=== PATIENT | female | born 1955 | race Caucasian/White ===

== ENCOUNTER → 2018-06-22 | Outpatient (CLI) | payer MEDICARE, OTHER ==
--- NOTE | 2018-06-22 13:11 | KCIC ---
EXAM: 3 views of the thoracic spine DATE: 06/22/2018 12:00 AM INDICATION: Persistent back pain COMPARISON: CT chest, 05/30/2005 FINDINGS: Vertebral body heights are preserved. No significant spondylolisthesis. Small anterior endplate osteophytes are seen at multiple levels most prominent at the lower thoracic spine. Ossification adjacent to the posterior spinous process of likely T8 and T7, likely heterotopic ossification. No evidence of acute fracture or dislocation. IMPRESSION: 1. Negative acute fracture or subluxation. 2. Degenerative changes of the lower thoracic spine. 3. Mild anatomic calcification adjacent to the posterior spinous process of likely T8 and T7. Electronically signed by: Champ Magdaleno MD (06/22/2018 1:07 PM) [facility]
== END | disposition home or self-care (01) ==
LOC: KCIC 11:33
PROVIDERS: ATTEND Family Medicine
DX: M47.894 Other spondylosis, thoracic region (principal); M25.78 Osteophyte, vertebrae
CPT/HCPCS: 72072

== ENCOUNTER → 2018-07-03 | Outpatient (CLI) | payer MEDICARE, OTHER ==
--- NOTE | 2018-07-03 14:50 | KCIC ---
EXAM: Abdomen sonogram. HISTORY: Abnormal liver function laboratory values. TECHNIQUE: Sonographic imaging of the abdomen was performed. COMPARISON: None. FINDINGS: The liver is enlarged. There is hepatic steatosis. No focal hepatic lesion is seen. The common bile duct is normal in caliber. The gallbladder is unremarkable. The pancreas is partially obscured due to bowel gas and body habitus. The right kidney is normal in size. There is no hydronephrosis. There is a 2.2 cm cyst within the lower pole the right kidney. The aorta is normal in caliber. The inferior vena cava is patent. IMPRESSION: 1. Hepatomegaly and hepatic steatosis. 2. 2.2 cm simple appearing right renal cyst. Electronically signed by: Linda Castillo MD (07/03/2018 2:47 PM) [facility] [place]
--- NOTE | 2018-07-04 07:41 | KCIC ---
EXAM: Dual energy x-ray absorptiometry (DEXA). HISTORY: Postmenopausal female presents for osteoporosis screening. COMPARISON: None. TECHNIQUE: Dual energy x-ray absorptiometry of the lumbar spine and left hip was performed. Calculation of bone mineral density based on standard deviations above or below the expected young adult normal value (T-score) was completed. FINDINGS: The average bone mineral density in the 1st through 4th lumbar vertebrae is 0.984 g/cmxcm, corresponding with a T-score of -0.6. The average total bone mineral density in the left hip is 0.802 g/cmxcm, corresponding with a T-score of -1.1. IMPRESSION: 1. Osteopenia measured at the left hip. 2. Normal bone mineral density measured at the lumbar spine. Note: Definitions established by the World Health Organization: 1. Normal: T-score is -1.0 or above. 2. Osteopenia: T-score is between -1.0 and -2.5 . 3. Osteoporosis: T-score is -2.5 or below. Electronically signed by: Linda Castillo MD (07/04/2018 7:38 AM) [facility]
== END | disposition home or self-care (01) ==
LOC: KCIC US 09:36
PROVIDERS: ATTEND Family Medicine
DX: M85.88 Other specified disorders of bone density and structure, other site (principal); K76.0 Fatty (change of) liver, not elsewhere classified; R16.0 Hepatomegaly, not elsewhere classified
CPT/HCPCS: 76705; 77080

== ENCOUNTER → 2021-04-30 | Outpatient (CLI) | payer MEDICARE, OTHER ==
[~2021-04-30] MED LIST: ASPI-630 PO; ESOM20CA PO; HYDR12.575 PO; IOHEXOL 240 MG/ML 50ML VIAL. PO ONE; IOHEXOL 300 MG/ML 100ML VIAL. IV ONE; LEVO25TA4 PO
--- NOTE | 2021-04-30 11:02 | KCIC ---
EXAMINATION: CT abdomen and pelvis with IV contrast. INDICATION:66 years, Female, abnormal lymph nodes seen on prior CT exam. Follow-up examination. TECHNIQUE: Axial CT images of the abdomen and pelvis were obtained. Coronal and sagittal reformatted performed. COMPARISON: 03/16/2020. Exposure: One or more of the following individualized dose reduction techniques were utilized for thi s examination: 1. Automated exposure control 2. Adjustment of the mA and/or kV according to patient size 3. Use of iterative reconstruction technique. FINDINGS: LOWER CHEST: Unremarkable ABDOMEN/PELVIS: Diffuse hepatic steatosis. Otherwise, normal morphology and size of the liver with homogeneous enhanc ement. No suspicious focal hepatic lesion. Mild splenomegaly measures up to 15 cm in length, unchange d since prior exam. No splenic lesion. Mildly atrophic pancreas with fat infiltration. Phrygian cup. Otherwise, unremarkable gallbladder. No biliary ductal dilation. Nodular thickening of the left adren al gland without discrete nodule. Right adrenal gland is normal. Unchanged simple appearing 2.[address] in the lower pole right kidney. No hydronephrosis in either kidney. No nephrolithiasis. No bowel obstruction or wall thickening. Normal appendix. Normal caliber abdominal aorta. It demonstr ates mild atherosclerotic calcifications without significant narrowing. Patent mesenteric arteries an d portal vein. No pneumoperitoneum or ascites. Redemonstrated prominent to mildly enlarged upper abdominal lymph nodes, unchanged in size and number since prior exam. For example, peripancreatic lymph node measures 1.8 cm in short axis. Gastrohepati c lymph node measures 1.0 cm in short axis. No retroperitoneal or pelvic lymphadenopathy by size crit eria. Similar gopal fat in the central small bowel mesentery with prominent mesenteric lymph nodes, n onspecific findings and can be seen in mesenteric panniculitis. Unremarkable urinary. Hysterectomy ch anges. MUSCULOSKELETAL: Small fat-containing umbilical hernia. Bilateral L5 pars defect. Multilevel degenerative changes in t he spine. IMPRESSION: 1. Similar size and number of multiple prominent to mildly enlarged upper abdominal lymph nodes, nons pecific. 2. Unchanged mild splenomegaly. 3. Similar gopal fat in the central small bowel mesentery with prominent mesenteric lymph nodes, nons pecific findings and can be seen in mesenteric panniculitis. 4. Other chronic/incidental findings, as described above. Electronically signed by: Jennifer Medina MD (04/30/2021 11:00 AM) [facility]
== END ==
LOC: KCIC CT 08:41
PROVIDERS: ATTEND Family Medicine
DX: K76.0 Fatty (change of) liver, not elsewhere classified (principal); K42.9 Umbilical hernia without obstruction or gangrene; N28.1 Cyst of kidney, acquired; R59.0 Localized enlarged lymph nodes; R16.1 Splenomegaly, not elsewhere classified; M79.3 Panniculitis, unspecified; K86.89 Other specified diseases of pancreas; I70.0 Atherosclerosis of aorta
CPT/HCPCS: 74177; Q9966; Q9967

== ENCOUNTER → 2021-05-01 | Outpatient (CLI) | payer MEDICARE, OTHER ==
[~2021-05-01] MED LIST changes: -IOHEXOL 240 MG/ML 50ML VIAL. PO ONE; -IOHEXOL 300 MG/ML 100ML VIAL. IV ONE
--- NOTE | 2021-05-01 16:48 | RAD ---
EXAM: BILATERAL DIGITAL 3D SCREENING MAMMOGRAPHY. HISTORY: Routine mammographic screening. TECHNIQUE: Bilateral digital 3D and tomographic images were obtained in CC and MLO projections. Compu ter-aided detection was applied. COMPARISON: None available. This is interpreted as a baseline study. COMPOSITION: C. The breasts are heterogeneously dense, which may obscure small masses. FINDINGS: There are multiple obscured or circumscribed masses bilaterally, likely reflecting lymph no jesus and cysts. These are seen at the left 9:00 position, and scattered throughout the right parenchym a. See annotations. There are indeterminate calcifications superiorly and medially on the right. See annotations. There is a small cluster of calcifications superolaterally on the left. See annotations. BI-RADS CATEGORY 0: Incomplete--Needs Additional Imaging Evaluation. RECOMMENDATION: 1. Sonography of the right breast to assess multiple obscured nodules at baseline. 2. Sonography of the left 9:00 position to assess likely benign nodules at baseline. 3. Magnification of indeterminate calcifications inferomedially on the right and superolaterally on t he left. Electronically signed by: Jose Ruiz MD (05/01/2021 4:46 PM) [email or web address]
== END ==
LOC: MAMMO 10:29
PROVIDERS: ATTEND Family Medicine
DX: Z12.31 Encounter for screening mammogram for malignant neoplasm of breast (principal)
CPT/HCPCS: 77063; 77067

== ENCOUNTER → 2021-05-17 | Outpatient (CLI) | payer MEDICARE, OTHER ==
--- NOTE | 2021-05-17 15:27 | RAD ---
US BREAST BILAT, MG DIAGNOSTIC BILAT 05/17/2021 2:20 PM INDICATION: Bilateral microcalcifications and masses. COMPARISON: 05/01/2021 TECHNIQUE: Spot magnification CC and ML/MLO views of the breasts were performed. Targeted sonographic evaluation of each breast was performed. FINDINGS: Right: In the medial posterior right breast, there is a 5 mm group of calcifications with heterogeneous calc ifications. Findings are probably benign and 3 month follow-up right mammogram is recommended. At the 2:00 position, 10 cm from the nipple there is a circumscribed hypoechoic mass with microcalcif ications and no definite posterior acoustic enhancement. Findings are suspicious and warrant ultrasou nd-guided core needle biopsy. Mass measures approximately 7 x 7 x 5 mm. electroencephalogram technologist will notify the ordering clinician and in order bulbi provided to the patient for the procedure. At the 9:00 position, 3 cm from the nipple there is a circumscribed hypoechoic mass with through fernandez smission suggestive of a cyst with minimal debris. Findings are benign. No suspicious axillary lymph node. There is a 7 mm intramammary lymph node at the 4:00 position, 4 cm from the nipple. Left: In the upper outer left breast there is a 4 mm group of microcalcifications.. Heterogeneous and are p robably benign. 3 month follow-up left mammogram is recommended. In the left breast at 3:00 position, 5 cm from nipple there is a lobulated hypoechoic mass with throu gh transmission suggestive of a cyst or cluster of cysts which may have internal debris. Findings fav or a complicated cyst . Complex cyst remains a differential consideration. Findings are probably timoteo gn. Three-month follow-up left breast ultrasound is recommended. IMPRESSION: 1. Suspicious mass in the right breast at the 10:00 position, 2 cm from the nipple. Ultrasound-guided core needle biopsy is recommended for further evaluation. 2. Probably benign microcalcifications within the breast bilaterally. 3 month follow-up mammogram is recommended. 3. Probably benign complicated cyst or cluster of cysts in the left breast. 3 month follow-up ultraso und is recommended. BI-RADS category: 4; Suspicious Recommendations: Tissue sampling is recommended as detailed above. Electronically signed by: Renee Carlin MD (05/17/2021 3:24 PM) [email or web address]
== END ==
LOC: US 13:30
PROVIDERS: ATTEND Family Medicine
DX: R92.1 Mammographic calcification found on diagnostic imaging of breast (principal); R92.2 Inconclusive mammogram
CPT/HCPCS: 77066; 76641-50

== ENCOUNTER → 2021-06-05 | Outpatient (CLI) | payer MEDICARE, OTHER ==
[~2021-06-05] MED LIST changes: +LIDOCAINE 1% Multi-Dose 20 ML VIAL. INJ ONE
--- NOTE | 2021-06-05 10:31 | RAD ---
MG DIAGNOSTICUNILAT MAMMO, US BREAST BIOPSY 1ST LESION History:Reason: Mass biopsy and POST BIOPSY CLIP PLACEMENT / Spl. Instructions: / History: Comparison: May 17, 2021 and May 01, 2021 Procedure: Relative benefits, risks and alternatives to the procedure were discussed and written inf ormed consent was obtained. With sterile technique, local anesthesia and ultrasound guidance, percutaneous biopsy was performed w ith a 14-gauge needle. After the initial pass the lesion was less apparent and may relate to cystic c omponents. Small hematoma was identified within the region of the initial biopsy. A discrete nodule w as not identified. Additional biopsies were not performed at this time. A marker was placed, and post procedure CC and ML views were obtained. Postclip mammogram demonstrate s marker within the right outer breast 9:00 position on mammogram with increased surrounding asymmetr y related to hematoma. The procedure was well tolerated. Specimen was sent to Pathology. The patient was sent home in good condition with written and verbal instructions. Impression: 1. Ultrasound-guided biopsy of right breast mass with small sample obtained due to cystic nature of the lesion. 2. Small postbiopsy hematoma. Pathology is pending. Electronically signed by: Antonio Campo DO (06/05/2021 10:29 AM) [email or web address]
--- NOTE | 2021-06-06 15:14 | PATHOLOGY ---
[facility] Accession Number: [id number] . 01 Material submitted: . breast - RIGHT BREAST MASS 10:00 2CMFN. Modifiers: right . 02 Diagnosis: Breast tissue, right breast mass 10:00 2 cm from nipple: - Stromal fibrosis with focal duct ectasia/cystic change and apocrine metaplasia. (JPM:jonnathan; 06/06/2021) QMS 06/06/2021 1152 Local . 02 Comment: There is no atypia or evidence of malignancy. (JPM:jonnathan; 06/06/2021) . 02 Electronically signed: . Steve Vee MD, Pathologist NPI- [id number] . 01 Gross description: . The specimen is received in formalin, labeled "Kaylynn, Susanne L and RT breast 10:00 2 cm FN" and per the requisition "right breast mass 10:00 2 cm FN". It consists of a roper-yellow fibrofatty core tissue fragment measuring 1.1 cm long by 0.2 cm in diameter. The specimen is entirely submitted between sponges in A1. . Time removed from patient: 09 on 06/05/21 Time in formalin: 0908 on 06/05/21 Time removed from formalin: 2340 on 06/05/21 Total time in formalin: 14 hours 32 minutes (MRF; 06/05/2021) MFE/MFE 06/05/2021 1446 Local . 02 Pathologist provided ICD-10: N60.31, N60.41, N60.81 . 02 CPT . 546326 Specimen Comment: A courtesy copy of this report has been sent to [phone], [phone] Specimen Comment: [id number] Specimen Comment: Report sent to / DR DOBBINS Performed at: [address] [facility] [address], [place], [place] [id number] MD Dontrell Eastman MD Phone: [phone] Performed at: 02 [facility] [address], [place] [id number] MD Steve Vee MD Phone: [phone]
== END ==
LOC: MAMMO 06-01 08:00
PROVIDERS: ATTEND Family Medicine
DX: N63.15 Unspecified lump in the right breast, overlapping quadrants (principal); N60.31 Fibrosclerosis of right breast; N60.81 Other benign mammary dysplasias of right breast; N60.41 Mammary duct ectasia of right breast
CPT/HCPCS: 19083; 77065; 88305; A4648